=== PATIENT | female | born 1990 | race Caucasian/White ===

== ENCOUNTER 2016-07-07 09:30 | Inpatient (IN) | payer OTHER ==
[2016-07-07] MEDS ORDERED: LIDOCAINE 1% (PF) 10 MG/ML (30 ML SDV) SQ PRN (10:13)
[2016-07-07] MEDS ORDERED: OXYTOCIN 10 UNIT/ML 1 ML VIAL IM PRN (10:13)
[2016-07-07] MEDS ORDERED: METHYLERGONOVINE 0.2 MG/ML 1 ML AMP IM PRN (10:13)
[2016-07-07] MEDS ORDERED: CARBOPROST TROMETHAMINE 250 MCG/ML 1 ML AMP IM PRN (10:13)
[2016-07-07] MEDS ORDERED: TERBUTALINE 1 MG/ML VIAL SQ PRN (10:13)
[2016-07-07] MEDS ORDERED: diphenhydrAMINE 50 MG/ML 1 ML VIAL IVP PRN ×2 (10:14)
[2016-07-07] MEDS ORDERED: Acetaminophen-Codeine 300-30mg TAB PO PRN (10:14)
[2016-07-07] MEDS ORDERED: SIMETHICONE 80 MG CHEWABLE PO PRN (10:14)
[2016-07-07] MEDS ORDERED: diphenhydrAMINE 25 MG CAP PO PRN (10:14)
[2016-07-07] MEDS ORDERED: diphenhydrAMINE 50 MG CAP PO PRN (10:14)
[2016-07-07] MEDS ORDERED: ACETAMINOPHEN TAB 325 MG TAB PO PRN (10:14)
[2016-07-07] MEDS ORDERED: HYDROCORTISONE 2.5% RECTAL CREAM 30 GM TUBE RECTAL PRN (10:14)
[2016-07-07] MEDS ORDERED: WITCH HAZEL 1 EACH MED..PAD TOPICAL PRN (10:14)
[2016-07-07] MEDS ORDERED: BENZOCAINE/MENTHOL SPRAY 1 GM/SPRAY AEROSOL TOPICAL PRN (10:14)
[2016-07-07] MEDS ORDERED: ZOLPIDEM 5 MG TAB PO PRN (10:14)
[2016-07-07] MEDS ORDERED: OXYTOCIN 30 UNITS/500 ML NS 30 UNIT in SALINE 1 500ML.BAG IV SCH (10:15)
[2016-07-07] MEDS ORDERED: LACTATED RINGERS 1,000 ML IV SCH (10:15)
--- NOTE | 2016-07-07 10:22 | P.HPOB ---
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 On admission, all signs reassuring. Her her has reportedly been uncomplicated though she has received no care having presented only to triage at [facility] on several occasions at which time labs were drawn. She reports that labor began earlier this morning and progressed rapidly leading to her presentation to labor and delivery. Group B strep status is unknown. Obstetrical history 3 para 2001 with 2 previous term deliveries, one of which was apparently complicated by intrauterine growth restriction. This has reportedly been uncomplicated by the patient's account though no care was sought were obtained. EDC of 07/10/2016 was apparently established by an ultrasound early in the through the care center. Laboratory workup drawn in triage demonstrates a blood type of O+ with a negative antibody screen. Rubella status is immune. Remainder of the laboratory workup was within normal limits. Glucola was never performed and group B strep status is unknown. Gynecologic history is reportedly unremarkable with no history of any infections to include STDs. Review of Systems Review of systems is confined to history of present illness. Past Medical History Past Medical History: Asthma History of Any Multi-Drug Resistant Organisms: None Reported Additional Past Surgical History / Comment(s): [place] teeth, Tubes in ears Past Anesthesia/Blood Transfusion Reactions: No Reported Reaction Past Psychological History: ADD/ADHD, Anxiety Smoking Status: Current every day smoker Past Alcohol Use History: None Reported Past Drug Use History: None Reported - Past Family History Mother Family Medical History: No Reported History Medications and Allergies Home Medications Medication Instructions Recorded Confirmed Type No Known Home Medications [No 06/28/16 06/28/16 History Known Home Medications] Allergies Allergy/AdvReac Type Severity Reaction Status Date / Time cefprozil [From Cefzil] Allergy Unknown Verified 06/28/16 02:40 Childhood latex Allergy Rash/Hives Verified 06/28/16 02:40 Penicillins Allergy Itching Verified 06/28/16 02:40 Exam In general, this is a well-developed, well-nourished white female in active labor. Her heart has a regular rhythm and rate without murmur. Her lungs are clear to auscultation bilaterally in all serrato. Her abdomen is gravid, nondistended, has normal active bowel sounds, soft, nontender, and without any palpable masses aside from uterine fundus. Her extremities are without any cyanosis, clubbing, or edema and are nontender to palpation bilaterally. Examination was performed immediately after delivery as I arrived during the delivery process. Assessment and Plan (1) No care in current Status: Acute (2) Active labor at term Status: Acute Plan: The patient was admitted for expectant management. She was transferred to a labor suite at which time she reached complete and pushed to delivery as I entered the room.
--- NOTE | 2016-07-07 10:24 | P.PROBDLV ---
Vaginal Delivery Note - . Vaginal Delivery Note: The patient is a 26-year-old 3 para 2001 admitted at 39+ weeks as established by an early ultrasound through the care center. She has had no care during the aside from occasional visits to triage. She reports that the was uncomplicated. Glucola and group B strep were not obtained. She presents in active labor with her cervix being found to be 8 cm in triage at which time I was contacted. She was transferred to a labor suite and I arrived approximately 10-15 minutes after the initial phone call at which time the infant had just been delivered by the nursing staff. She was delivered of a viable 5 lbs. 12 oz. baby boy with Apgars of 9 at 1 minute and 9 at 5 minutes and uncomplicated fashion. The placenta was delivered spontaneously, intact, and grossly normal with a grossly normal, centrally inserted three-vessel cord. There were no lacerations of the perineum , vagina, or cervix. Estimated blood loss for the case was approximately 150 mL. There were no apparent complications. All sponge, instrument, and needle counts were correct. Both mother and are resting comfortably in recovery.
[2016-07-07] MEDS: IBUPROFEN 600 MG TAB PO PRN ×2 (10:36→19:59)
[2016-07-07] MEDS: Acetaminophen-Codeine 300-30mg TAB PO PRN ×3 (11:54→22:23)
[2016-07-07 14:10] VITALS: BMI 25.1
[2016-07-07] MEDS ORDERED: CALCIUM CARBONATE 500 MG CHEWABLE PO PRN (14:36)
[2016-07-07] MEDS: SENNOSIDES-DOCUSATE SODIUM 1 EACH TAB PO SCH (23:06)
[2016-07-08] MEDS: IBUPROFEN 600 MG TAB PO PRN ×3 (00:52→19:57)
[2016-07-08 08:02] LABS: Basophils % (A) 0 %; CH 25.2; CHCM 31.7; Eosinophils # (A) 0.2 k/uL (0-0.7); Eosinophils % (A) 2 %; HCT 28.1 % (34.0-46.0); HDW 3.04; Hypochromasia Slight; Luc # (Auto) 0.27; Luc % (Auto) 3; Lymphocytes # (A) 3.2 k/uL (1.0-4.8); Lymphocytes % (A) 31 %; MCH 25.2 pg (25.0-35.0); MCHC 31.6 g/dL (31.0-37.0); MCV 79.9 fL (80.0-100.0); Mean Platelet Volume 7.1; Monocytes # (A) 0.6 k/uL (0-1.0); Monocytes % (A) 6 %; Neutrophils % (A) 59 %; RBC 3.52 m/uL (3.80-5.40); RDW 15.3 % (11.5-15.5); WBC 10.2 k/uL (3.8-10.6); WBC (Perox) 10.66
[2016-07-08] MEDS: SENNOSIDES-DOCUSATE SODIUM 1 EACH TAB PO SCH ×2 (08:15→21:19)
[2016-07-08 08:19] LABS: HGB 8.9 gm/dL (11.4-16.0)
--- NOTE | 2016-07-08 12:02 | P.PNOBGVD ---
Subjective - Subjective Patient reports: Reports appetite normal, Reports voiding normally, Reports pain well controlled, Reports ambulating normally : doing well Objective - Latest Vital Signs Latest vital signs: Vital Signs Temp Pulse Resp BP Pulse Ox 07/08/16 08:00 98 F 47 L 16 90/48 07/08/16 00:00 98.2 F 51 L 14 118/65 07/07/16 20:00 97.7 F 52 L 14 117/70 07/07/16 16:00 97.5 F L 54 L 16 102/55 97 07/07/16 14:41 69 18 07/07/16 14:25 97.3 F L 55 L 22 142/71 100 07/07/16 12:06 98.4 F 66 16 113/54 100 Intake and Output 07/07/16 07/08/16 07/08/16 22:59 06:59 14:59 Other: # Voids 1 # Bowel Movements 0 - Exam Lungs: bilateral: normal Chest: Normal S1, Normal S2 Extremities: Present: normal Abdomen: Present: normal appearance, soft Uterus: Present: normal, firm (The uterine fundus as tonic and nontender just below the umbilicus.) - Labs Labs: Abnormal Lab Results - Last 24 Hours (Table) 07/08/16 Range/Units 07:35 RBC 3.52 L (3.80-5.40) m/uL Hgb 8.9 L D (11.4-16.0) gm/dL Hct 28.1 L (34.0-46.0) % MCV 79.9 L (80.0-100.0) fL Assessment and Plan (1) No care in current Current Visit: Yes Status: Acute Code(s): O09.30 - SUPRVSN OF PREG W INSUFFICIENT ANTENAT CARE, UNSP TRIMESTER SNOMED Code(s): 9212350565155 (2) Active labor at term Current Visit: Yes Status: Acute Code(s): DNO0119 - SNOMED Code(s): 34254950 (3) Normal spontaneous vaginal delivery Narrative/Plan: Continue routine care. I would anticipate discharge home tomorrow pending no complications. protective services social worker input is appreciated. Current Visit: Yes Status: Acute Code(s): O80 - ENCOUNTER FOR FULL-TERM UNCOMPLICATED DELIVERY SNOMED Code(s): 82991501
[2016-07-08] MEDS: Acetaminophen-Codeine 300-30mg TAB PO PRN ×3 (13:09→23:22)
[2016-07-09 00:39] VITALS: RESP 18
[2016-07-09] MEDS: IBUPROFEN 600 MG TAB PO PRN (05:19)
[2016-07-09] MEDS: Acetaminophen-Codeine 300-30mg TAB PO PRN (09:06)
[2016-07-09 09:13] VITALS: BP 114/69; PULSE 60; TEMP 98
--- NOTE | 2016-07-09 11:06 | P.DS ---
Providers Date of admission: 07/07/16 09:37 Expected date of discharge: 07/09/16 Attending physician: Pj King Primary care physician: Stated None - Discharge Diagnosis(es) (1) No care in current Current Visit: Yes Status: Acute (2) Active labor at term Current Visit: Yes Status: Acute (3) Normal spontaneous vaginal delivery Current Visit: Yes Status: Acute Hospital Course: The patient is a 26-year-old 3 para 2001 admitted in active labor with a history of no care. Additional signs reassuring. She reported her was uncomplicated despite no care. On labor and delivery, she progressed rapidly to complete and then precipitously delivered before my arrival a viable 5 lbs. 12 oz. baby boy with Apgars of 9 at 1 minute and 9 at 5 minutes. Her course was unremarkable with vital signs remaining stable and her temperature was afebrile throughout. She was deemed stable for discharge by day #2 was discharged home to follow-up in the office in 6 weeks' time routinely. Discharge instructions included calling for any significantly increased bleeding or foul-smelling lochia, significantly increased fever abdominal pain, perineal complaints, breast complaints, or anything else that concerned her. She is additionally instructed to have nothing in the vagina for at least 6 weeks time to include intercourse. She understood her instructions and agrees to follow up as noted above. Discharge medications included continued vitamins as she has opted to breast- feed as well as a prescription for ibuprofen 600 mg 1 by mouth every 6-8 hours when necessary pain, #30 dispensed with no refills. Maternal blood type is O+ and rubella status is immune. Procedures: #1. Precipitous normal spontaneous vaginal delivery Patient Condition at Discharge: Good Plan - Discharge Summary Discharge Medication List No Known Home Medications [No Known Home Medications] 06/28/16 [History] Follow up Appointment(s)/Referral(s): Pj King MD [STAFF PHYSICIAN] - 6 Weeks Patient Instructions/Handouts: Vaginal Delivery (DC) Discharge Disposition: HOME SELF-CARE
[2016-07-09] MEDS: SENNOSIDES-DOCUSATE SODIUM 1 EACH TAB PO SCH (13:22)
== END 2016-07-09 13:00 | disposition home or self-care (01) | DRG 775 ==
LOC: FBPOP 09:30 → 4FBP 09:37
PROVIDERS: ADMIT Obstetrics & Gynecology; ATTEND Obstetrics & Gynecology
PROC: 10E0XZZ Delivery of Products of Conception, External Approach (ICD-10-PCS; principal; 2016-07-07)
DX: O62.3 Precipitate labor (principal); O99.344 Other mental disorders complicating childbirth; O99.334 Smoking (tobacco) complicating childbirth; O99.52 Diseases of the respiratory system complicating childbirth; F41.9 Anxiety disorder, unspecified; F17.200 Nicotine dependence, unspecified, uncomplicated; Z37.0 Single live birth; Z3A.39 39 weeks gestation of pregnancy; J45.909 Unspecified asthma, uncomplicated; F90.9 Attention-deficit hyperactivity disorder, unspecified type
CPT/HCPCS: 80306; 85025; 88307; 93005

== ENCOUNTER 2020-03-25 05:34 | Emergency (ER) | payer OTHER ==
[2020-03-25 05:41] VITALS: BP 138/98; PULSE 124; RESP 18; TEMP 98
[2020-03-25] MEDS ORDERED: Acetaminophen-Codeine 300-30mg TAB PO STA (05:50)
[2020-03-25] MEDS ORDERED: IBUPROFEN 600 MG TAB PO STA (05:50)
[2020-03-25] MEDS ORDERED: diazePAM 5 MG TAB PO STA (06:00)
--- NOTE | 2020-03-25 06:00 | ED ---
Upper Extremity HPI - General Chief Complaint: Extremity Injury, Upper Stated Complaint: hand injury Time Seen by Provider: 03/25/20 05:42 Source: patient, RN notes reviewed, old records reviewed Mode of arrival: ambulatory Limitations: no limitations - History of Present Illness Initial Comments: This is a 30-year-old female presents today one day status post fall trip and fall with right hand pain. Patient did catch herself with her right hand. Patient states the pain is severe worsening throughout the day. No other injury from fall is noted, patient presents with her boyfriend. Complaint: Injury to:: right, hand -: days(s) Other Extremity Injury: Hand: Right Other Injuries: none Handedness: right Place: home Severity scale (1-10): 8 Improves With: none Worsens With: none Context: fall, direct blow Associated Symptoms: denies other symptoms - Related Data Home Medications Medication Instructions Recorded Confirmed No Known Home Medications 06/28/16 07/07/16 Allergies Allergy/AdvReac Type Severity Reaction Status Date / Time cefprozil [From Cefzil] Allergy Unknown Verified 03/25/20 05:40 Childhood latex Allergy Rash/Hives Verified 03/25/20 05:40 Penicillins Allergy Itching Verified 03/25/20 05:40 Review of Systems ROS Statement: Those systems with pertinent positive or pertinent negative responses have been documented in the HPI. ROS Other: All systems not noted in ROS Statement are negative. Past Medical History Past Medical History: Asthma History of Any Multi-Drug Resistant Organisms: None Reported Additional Past Surgical History / Comment(s): [place] teeth, Tubes in ears Past Anesthesia/Blood Transfusion Reactions: No Reported Reaction Past Psychological History: ADD/ADHD, Anxiety Smoking Status: Current every day smoker Past Alcohol Use History: None Reported Past Drug Use History: None Reported - Past Family History Mother Family Medical History: No Reported History General Exam Limitations: no limitations General appearance: alert, in no apparent distress, anxious Head exam: Present: atraumatic, normocephalic, normal inspection Eye exam: Present: normal appearance, PERRL, EOMI. Absent: scleral icterus, conjunctival injection, periorbital swelling ENT exam: Present: normal exam, mucous membranes moist Neck exam: Present: normal inspection. Absent: tenderness, meningismus, lymphadenopathy Respiratory exam: Present: normal lung sounds bilaterally. Absent: respiratory distress, wheezes, rales, rhonchi, stridor Cardiovascular Exam: Present: normal rhythm, tachycardia, normal heart sounds. Absent: systolic murmur, diastolic murmur, rubs, gallop, clicks GI/Abdominal exam: Present: soft, normal bowel sounds. Absent: distended, tenderness, guarding, rebound, rigid Extremities exam: Present: normal inspection, full ROM, tenderness (Right hand), normal capillary refill. Absent: pedal edema, joint swelling, calf tenderness Back exam: Present: normal inspection Neurological exam: Present: alert, oriented X3, CN II-XII intact Psychiatric exam: Present: normal affect, normal mood Skin exam: Present: warm, dry, intact, normal color. Absent: rash Course Vital Signs 03/25/20 05:39 Temperature 98 F Pulse Rate 124 H Respiratory 18 Rate Blood Pressure 138/98 O2 Sat by Pulse 96 Oximetry - Reevaluation(s) Reevaluation #1: 03/25/20 06:00 Medical records reviewed Reevaluation #2: 03/25/20 06:54 Patient has improved pain control Reevaluation #3: 03/25/20 06:54 Patient is informed of findings and questions are answered Medical Decision Making - Medical Decision Making 30 female presents today for evaluation of fall fall fall with right hand injury, no triadic injury noted. Patient can be discharged home - Radiology Data Radiology results: report reviewed (X-ray hand negative for genetic injury), image reviewed Disposition Clinical Impression: Fall, Contusion of right hand Disposition: HOME SELF-CARE Condition: Good Instructions (If sedation given, give patient instructions): Contusion in Adults (ED) Is patient prescribed a controlled substance at d/c from ED?: No Referrals: None,Stated [Primary Care Provider] - 1-2 days
--- NOTE | 2020-03-25 06:53 | XR ---
EXAM: XR Right Hand Complete, 3 or More Views CLINICAL HISTORY: fall TECHNIQUE: Frontal, lateral and oblique views of the right hand. COMPARISON: No relevant prior studies available. FINDINGS: Bones/joints: Unremarkable. No acute fracture. No dislocation. Soft tissues: Unremarkable. No radiopaque foreign body. IMPRESSION: Negative right hand x-rays.
== END 2020-03-25 07:06 | disposition home or self-care (01) ==
LOC: EC 05:34
DX: S60.221A Contusion of right hand, initial encounter (principal); R00.0 Tachycardia, unspecified; F17.200 Nicotine dependence, unspecified, uncomplicated; Z88.0 Allergy status to penicillin; Z88.1 Allergy status to other antibiotic agents; Z91.040 Latex allergy status; W01.0XXA Fall on same level from slipping, tripping and stumbling without subsequent striking against object, initial encounter; Y92.009 Unspecified place in unspecified non-institutional (private) residence as the place of occurrence of the external cause
CPT/HCPCS: 99284

== ENCOUNTER 2020-08-29 20:54 | Emergency (ER) | payer OTHER ==
[2020-08-29 21:00] VITALS: BP 143/82; PULSE 98; RESP 20; TEMP 98.2
--- NOTE | 2020-08-29 21:57 | ED ---
General Adult HPI - General Chief complaint: Upper Respiratory Infection Stated complaint: Nose congestion Time Seen by Provider: 08/29/20 21:05 Source: patient Mode of arrival: ambulatory Limitations: no limitations - History of Present Illness Initial comments: 30-year-old female presents to emergency Department with chief complaint of cough and congestion. His been on that for the past 2 days. Does report chills but no fevers. She does have history of asthma and feels slightly wheezy but denies any shortness of breath or chest pain. She also reports clear bilateral rhinorrhea and some sinus congestion but denies any otalgia headaches. Denies nausea vomiting diarrhea. - Related Data Previous Rx's Medication Instructions Recorded Albuterol Nebulized [Ventolin 2.5 mg INHALATION Q4H PRN #25 nebu 08/29/20 Nebulized] Allergies Allergy/AdvReac Type Severity Reaction Status Date / Time cefprozil [From Cefzil] Allergy Unknown Verified 08/29/20 21:00 Childhood latex Allergy Rash/Hives Verified 08/29/20 21:00 Penicillins Allergy Itching Verified 08/29/20 21:00 Review of Systems ROS Statement: Those systems with pertinent positive or pertinent negative responses have been documented in the HPI. ROS Other: All systems not noted in ROS Statement are negative. Past Medical History Past Medical History: Asthma History of Any Multi-Drug Resistant Organisms: None Reported Past Surgical History: Ear Surgery Additional Past Surgical History / Comment(s): [place] teeth, Tubes in ears Past Anesthesia/Blood Transfusion Reactions: No Reported Reaction Past Psychological History: ADD/ADHD, Anxiety Smoking Status: Current every day smoker Past Alcohol Use History: None Reported Past Drug Use History: None Reported - Past Family History Mother Family Medical History: No Reported History General Exam Limitations: no limitations General appearance: alert, in no apparent distress Head exam: Present: atraumatic, normocephalic, normal inspection Eye exam: Present: normal appearance, PERRL, EOMI Pupils: Present: normal accommodation ENT exam: Present: normal exam, normal oropharynx, mucous membranes moist Neck exam: Present: normal inspection, full ROM. Absent: tenderness Respiratory exam: Present: wheezes (Mild wheezing noted in bilateral lung serrato.). Absent: normal lung sounds bilaterally, respiratory distress, rales, rhonchi, stridor Cardiovascular Exam: Present: regular rate, normal rhythm, normal heart sounds Extremities exam: Present: normal inspection, full ROM, normal capillary refill. Absent: tenderness Back exam: Present: normal inspection, full ROM. Absent: tenderness Neurological exam: Present: alert, oriented X3 Psychiatric exam: Present: normal affect, normal mood Skin exam: Present: warm, dry, intact, normal color Course Vital Signs 08/29/20 20:56 Temperature 98.2 F Pulse Rate 98 Respiratory 20 Rate Blood Pressure 143/82 O2 Sat by Pulse 99 Oximetry Medical Decision Making - Medical Decision Making 30-year-old female presents to emergency Department with a chief complaint of cough and congestion. Coronavirus pending. On physical examination it did hear some wheezing bilaterally. Patient is a smoker and has history of asthma. Chest x-ray is unremarkable. Gave the patient albuterol inhaler. Advised to follow with primary care physician. Strict return parameters were thoroughly discussed the patient was understanding and agreeable. Case discussed with Disposition Clinical Impression: Acute upper respiratory infection Disposition: HOME SELF-CARE Condition: Stable Instructions (If sedation given, give patient instructions): Upper Respiratory Infection (ED) Additional Instructions: Please return to the Emergency Department if symptoms worsen or any other concerns. Take prescribed medication as directed. Take [id number]-[id number] Zyrtec. Prescriptions: Albuterol Nebulized [Ventolin Nebulized] 2.5 mg INHALATION Q4H PRN #25 nebu PRN Reason: difficulty in breathing Is patient prescribed a controlled substance at d/c from ED?: No Referrals: Khloe Atwood MD [Primary Care Provider] - 1-2 days Time of Disposition: 21:56
--- NOTE | 2020-08-29 22:19 | XR ---
EXAMINATION TYPE: XR chest 2V DATE OF EXAM: 08/29/2020 COMPARISON: 05/10/2016 HISTORY: Cough and congestion TECHNIQUE: 2 views FINDINGS: Heart and mediastinum are normal. Lungs are clear. Diaphragm is normal. Bony thorax appears normal. IMPRESSION: Normal chest. No change.
== END 2020-08-29 23:05 | disposition home or self-care (01) ==
LOC: EC 20:54
DX: J06.9 Acute upper respiratory infection, unspecified (principal); F17.200 Nicotine dependence, unspecified, uncomplicated; J45.909 Unspecified asthma, uncomplicated; Z88.0 Allergy status to penicillin; F41.9 Anxiety disorder, unspecified
CPT/HCPCS: 71046; 99283; U0003; U0005

== ENCOUNTER 2020-10-05 22:45 | Emergency (ER) | payer OTHER ==
[2020-10-05 22:59] VITALS: BP 128/8; PULSE 95; RESP 18; TEMP 98
--- NOTE | 2020-10-05 23:40 | XR ---
EXAMINATION TYPE: XR ribs RT w pa chest xray DATE OF EXAM: 10/05/2020 COMPARISON: 08/29/2020 HISTORY: Chest pain TECHNIQUE: 3 views FINDINGS: Heart and mediastinum are normal. Lungs are clear of infiltrate. The right ribs appear inta ct. I see no pleural effusion or pneumothorax. IMPRESSION: Normal chest. Normal right ribs.
--- NOTE | 2020-10-06 01:54 | ED ---
General Adult HPI - General Chief complaint: Back Pain/Injury Stated complaint: RT shoulder pain Time Seen by Provider: 10/06/20 01:13 Source: patient Mode of arrival: ambulatory Limitations: no limitations - History of Present Illness Initial comments: 30-year-old female with a past medical history of asthma presents to the emergency room for right flank pain. Patient reports that this started today while taking her bra off. States it hurts to move certain ways. Patient denies dysuria. Denies fevers. She denies abdominal pain. Patient denies nausea vomiting diarrhea. Patient states she needs a work note for work as she was not able to go.Patient has no other complaints at this time including shortness of breath, chest pain, abdominal pain, nausea or vomiting, headache, or visual changes. - Related Data Previous Rx's Medication Instructions Recorded Albuterol Nebulized [Ventolin 2.5 mg INHALATION Q4H PRN #25 nebu 08/29/20 Nebulized] Allergies Allergy/AdvReac Type Severity Reaction Status Date / Time cefprozil [From Cefzil] Allergy Unknown Verified 10/05/20 22:59 Childhood latex Allergy Rash/Hives Verified 10/05/20 22:59 Penicillins Allergy Itching Verified 10/05/20 22:59 Review of Systems ROS Statement: Those systems with pertinent positive or pertinent negative responses have been documented in the HPI. ROS Other: All systems not noted in ROS Statement are negative. Past Medical History Past Medical History: Asthma History of Any Multi-Drug Resistant Organisms: None Reported Past Surgical History: Ear Surgery Additional Past Surgical History / Comment(s): [place] teeth, Tubes in ears Past Anesthesia/Blood Transfusion Reactions: No Reported Reaction Past Psychological History: ADD/ADHD, Anxiety Smoking Status: Current every day smoker Past Alcohol Use History: None Reported Past Drug Use History: None Reported - Past Family History Mother Family Medical History: No Reported History General Exam Limitations: no limitations General appearance: alert, in no apparent distress Head exam: Present: atraumatic, normocephalic, normal inspection Eye exam: Present: normal appearance, PERRL, EOMI. Absent: scleral icterus, conjunctival injection, periorbital swelling ENT exam: Present: normal exam, mucous membranes moist Neck exam: Present: normal inspection. Absent: tenderness, meningismus, lymphadenopathy Respiratory exam: Present: normal lung sounds bilaterally. Absent: respiratory distress, wheezes, rales, rhonchi, stridor Cardiovascular Exam: Present: regular rate, normal rhythm, normal heart sounds. Absent: systolic murmur, diastolic murmur, rubs, gallop, clicks GI/Abdominal exam: Present: soft, normal bowel sounds. Absent: distended, tenderness, guarding, rebound, rigid Back exam: Present: CVA tenderness (R) Course Vital Signs 10/05/20 22:57 Temperature 98.0 F Pulse Rate 95 Respiratory 18 Rate Blood Pressure 128/8 O2 Sat by Pulse 100 Oximetry Medical Decision Making - Medical Decision Making X-ray of the right ribs a chest x-ray was obtained in triage. This was normal. I did recommend patient have a urinalysis to evaluate for pyelonephritis given she has right flank pain. Patient was in the ER for 4 hours. She was unable to give a urine as she had already used the bathroom while in the waiting room. Patient adamantly requesting discharge home with work note. I discussed I'm unable to evaluate for infection of the kidney at this time and patient is aware of this. She is agreeable to returning if she has any worsening pain or fevers. She does not want to stay for a urinalysis and understands the risks. Disposition Clinical Impression: Flank pain Disposition: HOME SELF-CARE Condition: Good Instructions (If sedation given, give patient instructions): Flank Pain (ED) Additional Instructions: Please take Motrin and tylenol for pain. If pain is worse or you are getting fevers you must return to the emergency room. Otherwise follow-up with primary care. Is patient prescribed a controlled substance at d/c from ED?: No Referrals: Khloe Atwood MD [Primary Care Provider] - 1-2 days Time of Disposition: 02:14
== END 2020-10-06 02:31 | disposition home or self-care (01) ==
LOC: EC 22:45
DX: R10.9 Unspecified abdominal pain (principal); J45.909 Unspecified asthma, uncomplicated; F17.200 Nicotine dependence, unspecified, uncomplicated; Z88.0 Allergy status to penicillin; Z88.1 Allergy status to other antibiotic agents; Z91.040 Latex allergy status
CPT/HCPCS: 99283